=== PATIENT | female | born 1960 | race Caucasian/White ===

== ENCOUNTER → 2016-08-19 | Outpatient (CLI) | payer MEDICAID | LOC: FIMAGING 10:05 | PROVIDERS: ATTEND Physician Assistant Medical | DX: N63 Unspecified lump in breast (principal) | CPT/HCPCS: G0204 ==

== ENCOUNTER → 2017-02-15 | Outpatient (CLI) | payer MEDICAID | LOC: BRMIMAGING 12:27 | PROVIDERS: ATTEND Physician Assistant Medical | DX: M46.96 Unspecified inflammatory spondylopathy, lumbar region (principal); M43.8X6 Other specified deforming dorsopathies, lumbar region; M25.551 Pain in right hip | CPT/HCPCS: 72100-PO; 73502-PO ==

== ENCOUNTER → 2017-03-05 | Outpatient (CLI) | payer MEDICAID | LOC: FIMAGING 06:50 | PROVIDERS: ATTEND Physician Assistant Medical | DX: M51.36 Other intervertebral disc degeneration, lumbar region (principal); M43.16 Spondylolisthesis, lumbar region; M12.88 Other specific arthropathies, not elsewhere classified, other specified site ==

== ENCOUNTER → 2018-02-14 | Outpatient (CLI) | payer MEDICAID | LOC: CIMAGING 14:12 | PROVIDERS: ATTEND Internal Medicine Pulmonary Disease | DX: R53.83 Other fatigue (principal); R91.1 Solitary pulmonary nodule | CPT/HCPCS: 71250-PO ==

== ENCOUNTER → 2018-05-28 | Outpatient (CLI) | payer MEDICAID | LOC: FIMAGING 07:34 | PROVIDERS: ATTEND Physician Assistant Medical | DX: M50.30 Other cervical disc degeneration, unspecified cervical region (principal); M50.20 Other cervical disc displacement, unspecified cervical region; M48.02 Spinal stenosis, cervical region; G95.20 Unspecified cord compression ==